=== PATIENT | male | born 1960 | race Caucasian/White ===

== ENCOUNTER → 2021-03-22 19:18 | Outpatient (CLI) | payer BC, SELFPAY | PROVIDERS: Visit Provider Nurse Practitioner Family | DX: U07.1 COVID-19 (principal); R51.9 Headache, unspecified; R05.9 Cough, unspecified; R11.0 Nausea | CPT/HCPCS: C9803; U0003; U0005 ==

== ENCOUNTER → 2021-08-07 14:05 | Outpatient (CLI) | payer BC, SELFPAY ==
--- NOTE | 2021-08-07 14:08 | CT_ITS ---
FINAL REPORT CLINICAL HISTORY: . SMOKER 1.5PPD X40+ YEARS FINDINGS: Low-Dose Chest CT CTDI vol (mGy): 2.90 DLP (mGy-cm): 106.03 Axial images were obtained from the lung apex to the mid abdomen by computed tomography. Low-dose protocol was utilized. FINDINGS: CHEST: There are multiple borderline enlarged bilateral axillary lymph nodes There is no hilar or mediastinal adenopathy. The heart is proper size. There is no pericardial or pleural effusion. Limited images of the upper abdomen demonstrate postoperative changes from cholecystectomy. Lung window images demonstrate mild changes of emphysema and mild pulmonary scarring. There is a calcified granuloma in the left lung base. There is a 3 mm nodule in the right major fissure favoring an intra fissural lymph node. IMPRESSION: Lung RADS category 1. Recommend 12 month follow-up low-dose chest CT. Reviewed, Interpreted and Dictated by Jamie Hernandez III, MD Transcribed by Yuridia Joyce Authenticated by Jamie Hernandez III, MD on 08/07/2021 03:56:[address] [facility]
== END ==
PROVIDERS: PCP Nurse Practitioner Family; Visit Provider Internal Medicine Adolescent Medicine
DX: Z87.891 Personal history of nicotine dependence (principal); Z12.2 Encounter for screening for malignant neoplasm of respiratory organs
CPT/HCPCS: 71271

== ENCOUNTER → 2021-09-01 11:01 | Outpatient (CLI) | payer BC, SELFPAY | PROVIDERS: PCP Internal Medicine Adolescent Medicine; Visit Provider Surgery | DX: Z01.812 Encounter for preprocedural laboratory examination (principal); Z20.822 Contact with and (suspected) exposure to COVID-19; Z12.11 Encounter for screening for malignant neoplasm of colon | CPT/HCPCS: C9803; U0003; U0005 ==

== ENCOUNTER 2021-09-04 08:28 | Day surgery (SDC) | payer BC, SELFPAY ==
[2021-08-30 10:49] VITALS: BMI 24.7
[2021-09-04 08:45] VITALS: BP 131/85; PULSE 91; RESP 18; TEMP 36.9; O2SAT 96
--- NOTE | 2021-09-04 08:53 | PC.NURSE ---
PAtient stated he has dermititis all over body. PCP is aware pt recieved shot (possible steriod) and PO visteril he doesnt take all the time that has helped itching.
[2021-09-04 09:35] VITALS: O2SAT 96
--- NOTE | 2021-09-04 09:47 | HMH.ANESCL ---
[facility] Anesthesia Checklist - Patient Identification Patient Identification: Arm Band - Structural Data Admitted From: Home Planned Operative Procedure/s: colonoscopy Consent for Planned Operative Procedure(s) Verified: Yes Verified Documents: Surgical Consent, History and Physical - NPO Status Verified Time NPO: 00:00 - Additional verifications Anesthesia Reactions: No - Airway Assessment C-Spine Mobility Assessed: Yes (mp2) TMJ Mobility Assessed: Yes Dentition: Good Dentition - Neurological Assessment Level of Consciousness: Awake, Alert - Anesthesia Plan Anesthesia Risk discussed: Yes Anesthesia Plan: Verified ASA Class: III Anesthesia Type: [facility] History I have reviewed the patient's past medical history: Yes Medical History: Reports:: Chronic Obstructive Pulmonary Disease (COPD), Hyperlipidemia Denies:: Cancer, Diabetes Mellitus Type 1, Diabetes Mellitus Type 2, Internal Pacemaker, MRSA, Seizures *Have you ever received a pneumonia vaccine?: No *Have you received a flu vaccine this season?: No Anesthesia experience/problems:: nac Other Surgeries: Yes: Cholecystectomy. No: Pacemaker Amputation: No Fractures: No - *Social History Last grade of school completed: High school graduate Smoking Status: Current every day smoker Tobacco Type: cigarettes # Packs/Day (cigarettes): 2 Alcohol Intake: current Alcohol Intake Frequency:: a few times a month Substance Use Type: denies use *Occupational Status:: employed Housing: house Household Members: significant other, other *Travel in the last 8 weeks: None Family Hx:: Non-contributory
[2021-09-04 10:30] VITALS: BP 114/51; PULSE 85; RESP 18; TEMP 36.6; O2SAT 94
--- NOTE | 2021-09-04 10:31 | P.PCN_ITS ---
- Procedure: Date: 09/04/21 Patient Date of :: 1960 Procedure Performed:: Colonoscopy with polypectomy Indications:: Screening Performing Provider:: Greg Henning MD Referring Provider:: . Sedation:: Monitored anesthesia care Procedure:: After informed consent was obtained the patient was taken to the endoscopy suite. Sedation ensued after the patient was transferred to the left lateral decubitus position. Pulse, blood pressure, and oxygen saturation were monitored throughout the procedure. Digital rectal exam revealed no significant ab normality. The colonoscope was placed in position. The entire colon was evaluated. The colonoscope was carefully removed and the patient was transferred to recovery in stable condition. Please see findings and specimens below for detail. Findings:: Hemorrhoidal tag/cushions Bowel preparation moderate to poor Sigmoid diverticulosis Fairly significant spasticity/lack of relaxation Multiple complex polyps (see specimens) Cluster of hyperplastic-appearing polyps throughout rectum/sigmoid Specimens:: Hepatic flexure polyp (hot snare) Pedunculated transverse colon polyp (hot snare) Large complex lobulated polyp at 45 cm (hot snare) Lobulated polyp at 35 cm (hot snare) Adjacent polyps at 30 cm (hot snare) Large complex pedunculated polyp at 20 cm (hot snare) Polyp at 15 cm (hot snare) Polyp at 10 cm (hot snare) Recommendations:: Timing of repeat colonoscopy is pending pathology but will likely be around 1 year secondary to limited bowel preparation, size/nature/number of polyps, spasticity/lack of relaxation, and need for short-term repeat evaluation of hyperplastic-appearing polyps throughout rectum and sigmoid. Complications:: No immediate Estimated blood obtained (mL): 1
[2021-09-04 10:45] VITALS: BP 122/77; PULSE 81; RESP 18; O2SAT 95
--- NOTE | 2021-09-04 10:48 | SUR.PHASEII ---
PT DID NOT WANT TO STAY ANY LONGER IN [facility] FOR RECOVERY. INSISTED THAT HE WAS FINE AND READY TO GO HOME. PT DID ALLOW ONE MORE BP THAT WAS NORMAL. PT AMBULATED OUT WITH SPOUSE AT SIDE.
== END 2021-09-04 10:48 | disposition home or self-care (01) ==
LOC: OUTP 08:29
PROVIDERS: PCP Internal Medicine Adolescent Medicine; Visit Provider Surgery
PROC: 0DJD8ZZ Inspection of Lower Intestinal Tract, Via Natural or Artificial Opening Endoscopic (ICD-10-PCS; CPT 45385; principal; 2021-09-04 09:30)
DX: Z12.11 Encounter for screening for malignant neoplasm of colon (principal); D12.4 Benign neoplasm of descending colon; D12.5 Benign neoplasm of sigmoid colon; D12.3 Benign neoplasm of transverse colon
CPT/HCPCS: 45385; J2704

== ENCOUNTER 2021-11-15 20:52 | Emergency (ER) | payer SELFPAY ==
[2021-11-15 20:53] VITALS: BP 190/125; PULSE 91; RESP 18; TEMP 37; O2SAT 98; BMI 25.8
--- NOTE | 2021-11-15 21:09 | CT_ITS ---
PROCEDURE INFORMATION: Exam: CTA Neck With Contrast Exam date and time: 11/15/2021 10:01 PM Age: 60 years old Clinical indication: Dizziness and giddiness; Additional info: Dizzy TECHNIQUE: Imaging protocol: Computed tomographic angiography of the neck with contrast. 3D rendering (Not supervised by radiologist): MIP and/or 3D reconstructed images were created by the technologist. Radiation optimization: All CT scans at this facility use at least one of these dose optimization techniques: automated exposure control; mA and/or kV adjustment per patient size (includes targeted exams where dose is matched to clinical indication); or iterative reconstruction. Contrast material: ISOVUE; Contrast volume: 100 ml; Contrast route: INTRAVENOUS (IV); COMPARISON: CT LUNG SCREENING 08/07/2021 2:18 PM FINDINGS: Right common carotid artery: No stenosis. No dissection or occlusion. Right internal carotid artery: There is calcified plaque in the proximal right internal carotid artery with minimal, less than 20%, stenosis. Right external carotid artery: No occlusion or stenosis of the origin. Left common carotid artery: No stenosis. No dissection or occlusion. Left internal carotid artery: No stenosis of the extracranial segment. No dissection or occlusion. Left external carotid artery: No occlusion or stenosis of the origin. Right vertebral artery: No stenosis. No dissection or occlusion. Left vertebral artery: No stenosis. No dissection or occlusion. Soft tissues: Normal. No significant soft tissue swelling. Bones/joints: There is spondylosis and disc space narrowing at C5-C6 and C6-C7. Lungs: There is mild centrilobular and paraseptal emphysema in the upper lobes. IMPRESSION: 1. Less than 20% stenosis at the origin of the right internal carotid artery. No left carotid stenosis. 2. No vertebral artery stenosis. REFERENCES: NASCET CRITERIA. The degree of internal carotid artery stenosis is based on NASCET criteria. Normal is no stenosis. Mild is less than 50% stenosis. Moderate is 50-69% stenosis. Severe is 70% to 99% stenosis. Total occlusion is no detectable patent lumen.
--- NOTE | 2021-11-15 21:09 | CT_ITS ---
PROCEDURE INFORMATION: Exam: CTA Head With Contrast, Arteriography Exam date and time: 11/15/2021 10:01 PM Age: 60 years old Clinical indication: Dizziness and giddiness; Additional info: Dizzy TECHNIQUE: Imaging protocol: Computed tomographic angiography of the head with contrast. Exam focused on the arteries. 3D rendering (Not supervised by radiologist): MIP and/or 3D reconstructed images were created by the technologist. Radiation optimization: All CT scans at this facility use at least one of these dose optimization techniques: automated exposure control; mA and/or kV adjustment per patient size (includes targeted exams where dose is matched to clinical indication); or iterative reconstruction. Contrast material: ISOVUE; Contrast volume: 100 ml; Contrast route: INTRAVENOUS (IV); COMPARISON: No relevant prior studies available. FINDINGS: ANTERIOR CIRCULATION: Right internal carotid artery: Unremarkable. Intracranial segment is patent with no significant stenosis. No aneurysm. Right middle cerebral artery: Unremarkable. No occlusion or significant stenosis. No aneurysm. Right anterior cerebral artery: Unremarkable. No occlusion or significant stenosis. No aneurysm. Left internal carotid artery: Unremarkable. Intracranial segment is patent with no significant stenosis. No aneurysm. Left middle cerebral artery: Unremarkable. No occlusion or significant stenosis. No aneurysm. Left anterior cerebral artery: Unremarkable. No occlusion or significant stenosis. No aneurysm. POSTERIOR CIRCULATION: Right vertebral artery: Unremarkable. No occlusion or significant stenosis. No aneurysm. Left vertebral artery: There is calcified plaque in the intracranial left vertebral artery with mild stenosis. No aneurysm. Basilar artery: Unremarkable. No occlusion or significant stenosis. No aneurysm. Right posterior cerebral artery: Unremarkable. No occlusion or significant stenosis. No aneurysm. Left posterior cerebral artery: Unremarkable. No occlusion or significant stenosis. No aneurysm. Brain: See head CT IMPRESSION: No intracranial large vessel significant stenosis or occlusion.
--- NOTE | 2021-11-15 21:09 | CT_ITS ---
PROCEDURE INFORMATION: Exam: CT Head Without Contrast Exam date and time: 11/15/2021 10:01 PM Age: 60 years old Clinical indication: Dizziness; Additional info: Dizzy TECHNIQUE: Imaging protocol: Computed tomography of the head without contrast. Radiation optimization: All CT scans at this facility use at least one of these dose optimization techniques: automated exposure control; mA and/or kV adjustment per patient size (includes targeted exams where dose is matched to clinical indication); or iterative reconstruction. COMPARISON: No relevant prior studies available. FINDINGS: Brain: Normal. No hemorrhage. Unremarkable white matter. No mass effect. Cerebral ventricles: No ventriculomegaly. Paranasal sinuses: Visualized sinuses are unremarkable. No fluid levels. Mastoid air cells: Visualized mastoid air cells are well aerated. Bones/joints: No acute fracture. Soft tissues: No acute changes IMPRESSION: No acute intracranial abnormality.
--- NOTE | 2021-11-15 21:10 | XR_ITS ---
PROCEDURE INFORMATION: Exam: XR Chest Exam date and time: 11/15/2021 9:40 PM Age: 60 years old Clinical indication: Other: Dizziness; Additional info: Dizzy TECHNIQUE: Imaging protocol: Radiologic exam of the chest. Views: 1 view. COMPARISON: CT LUNG SCREENING 08/07/2021 2:18 PM FINDINGS: Lungs: Bilateral hyperinflation is present. No focal pneumonia or pneumothorax. Pleural spaces: There are no pleural effusions present. Heart/Mediastinum: Unremarkable. No cardiomegaly. Bones/joints: The thoracic spine demonstrates mild degenerative changes at multiple levels. Sclerotic changes present along the proximal humerus. IMPRESSION: 1. Bilateral hyperinflation is present. 2. No focal pneumonia or pneumothorax.
--- NOTE | 2021-11-15 21:10 | HMH.EDGENADL ---
ED Disposition Clinical Impression: Elevated blood pressure reading Disposition: Home, Self-Care Condition on Discharge: Fair Instructions: Essential Hypertension Additional Instructions: You have been evaluated for elevated blood pressure, lightheadedness and dizziness. Please continue to monitor your symptoms closely. Call Dr. Jasmine's office tomorrow for urgent follow-up. Start taking lisinopril hydrochlorothiazide, unless he has a different recommendation. Return to the emergency department at once for any new or worsening symptoms, headache, fever, speech difficulty, vision changes, numbness or weakness or any other concerns. Prescriptions: Lisinopril/Hydrochlorothiazide [Lisinopril-Hctz 10-12.5 mg Tab*] 1 tab PO DAILY #30 tab Transmission Status: Pending to [id number] Referrals: Desmond Jasmine MD [Primary Care Provider] - Time of Disposition: 23:23 - Critical Care Critical Care Time: No Attestation: On 11/15/21, the high probability of a clinically significant, sudden or life threatening deterioration of the following system(s) required my full and direct attention, intervention and personal management. The time I documented below is in addition to time spent performing reported procedures but includes the following listed in this critical care notation. Medical Decision Making - Medical Records Medical records reviewed: Yes: I reviewed the patient's medical records. - Nabil Inquiry Pt receiving controlled substance: No Vital Signs: 11/15/21 20:53 Temperature 98.6 F Temperature Source Oral Pulse Rate [Right] 91 H Respiratory Rate 18 Blood Pressure [Right Arm] 190/125 H Blood Pressure Mean [Right Arm] 146 02 Sat by Pulse Oximetry 98 - Lab Data Lab Results 11/15/21 21:20: WBC 6.9, RBC 4.45 L, Hgb 15.2, Hct 46.8, MCV 105.1 H, MCH 34.2 H, MCHC 32.6, RDW 14.0, Plt Count 345, MPV 7.6, Neut % (Auto) 53.0, Lymph % (Auto) 35.1, [place] % (Auto) 6.3, Eos % (Auto) 3.9, Baso % (Auto) 1.8, Neut # (Auto) 3.6, Lymph # (Auto) 2.4, [place] # (Auto) 0.4, Eos # (Auto) 0.3, Baso # (Auto) 0.1 11/15/21 21:20: PT 10.7, INR 0.94, APTT 27.8 11/15/21 21:20: Sodium 138, Potassium 4.2, Chloride 104, Carbon Dioxide 29, Anion Gap 9.2, BUN 12, Creatinine 0.80, Estimated Creat Clear 104, Estimated GFR 99, Est GFR ( Amer) 119, Glucose 102 H, Calcium 9.2, Total Bilirubin 0.5, AST 27, ALT 18, Alkaline Phosphatase 138 H, Troponin I < 0.01, Total Protein 7.2, Albumin 4.3, Globulin 2.9, Albumin/Globulin Ratio 1.5 11/15/21 21:43: Urine Color Yellow, Urine Appearance Clear, Urine pH 6.0, Ur Specific [place] 1.020, Urine Protein Negative, Urine Glucose (UA) Negative, Urine Ketones Negative, Urine Blood Negative, Urine Nitrate Negative, Urine Bilirubin Negative, Urine Urobilinogen 2.0, Ur Leukocyte Esterase Negative, Urine RBC None, Urine WBC Occasional, Ur Squamous Epith Cells Occasional, Urine Bacteria None, Urine Mucus 1+ Result diagrams: 11/15/21 21:20 11/15/21 21:20 Orders (Tests/Meds): ED MEDICATIONS Discontinued Medications Generic Name Dose Route Start Last Admin Trade Name Freq PRN Reason Stop Dose Admin Iopamidol 100 ml 11/15/21 22:22 11/15/21 22:23 Iopamidol-370 (76%);100ml Bottle IV 11/15/21 22:23 100 ml ONCE ONE Administration Sodium Chloride 50 ml 11/15/21 22:22 11/15/21 22:23 0.9 % Sodium Chloride 50 Ml Vial IV 11/15/21 22:23 50 ml ONCE ONE Administration Sodium Chloride 10 ml 11/15/21 22:22 11/15/21 22:23 Sodium Chloride 0.9% 10ml Syr (Rad Only) IV 11/15/21 22:23 10 ml ONCE ONE Administration ORDERS Category Date Time Status Troponin I Q3H Lab 11/16/21 00:15 Ordered Troponin I Q3H Lab 11/16/21 03:15 Ordered Medical Decision Narrative: In summary this is a previously healthy 60-year-old male presenting to the emergency department with elevated blood pressure, lightheadedness, dizziness. Patient clinically stable on arrival. Vital signs within normal
--- NOTE | 2021-11-15 21:14 | ECG_ITS ---
APPROVED REPORT Exam: Resting ECG HR:83 bpm ECG Measurements Heart Rate 83 AXES NM 127 P 54 QRSd 104 QRS 59 QT 404 T 60 QTc 443 Conclusion SINUS RHYTHM WITH SINUS ARRHYTHMIA MINIMAL ST DEPRESSION [0.025+ mV ST DEPRESSION] BORDERLINE ECG UNCONFIRMED REPORT Electronically signed by : Zen Desai MD 11/16/2021 17:02:08
[2021-11-15 21:49] LABS: Basophils # 0.1 K/mm3 (0-0.2); Basophils % 1.8 % (0.1-2.0); Eosinophils # 0.3 K/mm3 (0.0-0.4); Eosinophils % 3.9 % (0.1-12.0); Hematocrit 46.8 % (42.0-52.0); Hemoglobin 15.2 g/dL (14.1-18.0); Lymphocytes # 2.4 K/mm3 (0.7-4.5); Lymphocytes % 35.1 % (10-50); Mean Corpuscular HGB Conc 32.6 g/dL (31.8-35.4); Mean Corpuscular Hemoglobin 34.2 pg (27.0-31.2); Mean Corpuscular Volume 105.1 fl (80-94); Mean Platelet Volume 7.6 fl (7.4-10.4); Monocytes # 0.4 K/mm3 (0.1-1.0); Monocytes % 6.3 % (1.7-9.3); Neutrophils # 3.6 K/mm3 (1.8-7.8); Platelet Count 345 K/mm3 (142-424); Red Blood Count 4.45 M/mm3 (4.60-6.20); White Blood Count 6.9 K/mm3 (4.8-10.8)
[2021-11-15 21:49] LABS: Microscopic, Urine URINE MICROSCOPIC (MICROSCOPIC)
[2021-11-15 21:51] LABS: Chloride 104 mmol/L (98-107); Sodium 138 mmol/L (136-145)
[2021-11-15 21:52] LABS: Potassium 4.2 mmoL/L (3.5-5.1)
[2021-11-15 21:54] LABS: Alanine Aminotransferase 18 U/L (12-78); Albumin Level 4.3 g/dl (3.5-5.0); Albumin/Globulin Ratio 1.5 (1.1-1.8); Alkaline Phosphatase 138 U/L (38-126); Anion Gap 9.2 mEq/L (5-15); Aspartate Amino Transferase 27 U/L (17-59); Bilirubin,Total 0.5 mg/dl (0.2-1.3); Blood Urea Nitrogen 12 mg/dl (9-20); Carbon Dioxide 29 mmol/L (22.0-30.0); Creatinine Clearance Estimated 104 mL/min (50-200); Estimated Glomerular Filt Rate 99 ml/min (>60); GFR (African American) 119 ML/MIN (>60); Globulin 2.9 g/dL (1.3-3.2); Total Protein,Serum 7.2 g/dl (6.3-8.2)
[2021-11-15 21:55] LABS: Activated Partial Thrombo Time 27.8 seconds (22.8-30.6); Calcium 9.2 mg/dl (8.4-10.2); Glucose 102 mg/dl (74-100); INR 0.94 (0.9-1.1); Prothrombin Time 10.7 seconds (10.1-12.5)
[2021-11-15 22:09] LABS: Troponin I < 0.01 ng/ml (0.00-0.034)
[2021-11-15 22:34] LABS: Appearance,Urine CLEAR (Clear); Bilirubin,Urine Negative (Negative); Blood, Urine Negative (Negative); Color,Urine YELLOW (Yellow); Glucose,Urine (UA) Negative (Negative); Ketones,Urine Negative (Negative); Leukocyte Esterase,Urine Negative (Negative); Nitrate,Urine Negative (Negative); Protein,Urine Negative (Negative)
[2021-11-15 22:55] LABS: Mucus,Urine 1+ /lpf; Squamous Epithelial Cell,Urine Occasional #/hpf (0-5); WBC,Urine Occasional #/hpf (0-3)
[2021-11-15 23:45] VITALS: BP 160/103; PULSE 84; RESP 18; TEMP 37; O2SAT 97
== END 2021-11-15 23:50 | disposition home or self-care (01) ==
PROVIDERS: Emergency Provider Emergency Medicine; PCP Internal Medicine Adolescent Medicine
DX: R42 Dizziness and giddiness (principal); R51.9 Headache, unspecified; I10 Essential (primary) hypertension; E78.5 Hyperlipidemia, unspecified; J44.9 Chronic obstructive pulmonary disease, unspecified; F17.210 Nicotine dependence, cigarettes, uncomplicated; Z79.51 Long term (current) use of inhaled steroids; Z79.52 Long term (current) use of systemic steroids; Z79.899 Other long term (current) drug therapy
CPT/HCPCS: 70450; 70496; 70498; 71045; 80053; 81001; 84484; 85025; 85610; 85730; 93005; 99285; Q9967

== ENCOUNTER 2021-12-03 17:07 | Emergency (ER) | payer BC, SELFPAY ==
--- NOTE | 2021-12-03 18:22 | XR_ITS ---
PROCEDURE INFORMATION: Exam: XR Left Hip Exam date and time: 12/03/2021 6:31 PM Age: 60 years old Clinical indication: Hip pain; Bilateral TECHNIQUE: Imaging protocol: Radiologic exam of the Left hip. Views: 2 or 3 views hip with pelvis when performed. COMPARISON: No relevant prior studies available. FINDINGS: Bones/joints: No fracture. Normal alignment. Hip joint spaces and articular surfaces are grossly well-maintained. No radiographic evidence to suggest transient osteoporosis or avascular necrosis. No blastic or lytic lesions. The visualized SI joints, pubic symphysis, and sacrum/pelvis were unremarkable. Soft tissues: No gross soft tissue abnormalities. Other findings: The anatomic configuration does not specifically predispose to femoro-acetabular impingement. IMPRESSION: No acute findings.
--- NOTE | 2021-12-03 18:22 | XR_ITS ---
PROCEDURE INFORMATION: Exam: XR Right Hip Exam date and time: 12/03/2021 6:29 PM Age: 60 years old Clinical indication: Hip pain; Bilateral TECHNIQUE: Imaging protocol: Radiologic exam of the Right hip. Views: 2 or 3 views hip with pelvis when performed. COMPARISON: No relevant prior studies available. FINDINGS: Tubes, catheters and devices: Intrapelvic surgical clip noted. Bones/joints: No fracture. Normal alignment. Hip joint spaces and articular surfaces are grossly well-maintained. Borderline mild cam morphology of the lateral right femoral head/neck junction with mild hypertrophy of the superolateral right acetabular margin with no significant acetabular over-coverage. The configuration might predispose to chronic femoroacetabular impingement, correlate clinically. No radiographic evidence to suggest transient osteoporosis or avascular necrosis. No blastic or lytic lesions. The visualized SI joints, pubic symphysis, and sacrum/pelvis were unremarkable. Soft tissues: No gross soft tissue abnormalities. IMPRESSION: 1. No acute findings. 2. The right hip morphology may predispose to chronic femoroacetabular impingement, correlate clinically.
[2021-12-03 18:29] VITALS: BP 126/85; PULSE 81; RESP 16; TEMP 37.2; O2SAT 99; BMI 24.6
--- NOTE | 2021-12-03 18:33 | EXP.UTC ---
Discharge Plan Disposition Patient Disposition: Home, Self-Care Condition: Good Prescriptions Prescriptions: New methylprednisolone 4 mg Tablets,Dose Pack 4 mg PO DIRECTED Qty: 21 0RF No Action lisinopril-hydrochlorothiazide 1 EACH tablet 1 tab PO DAILY Qty: 30 0RF albuterol sulfate 8.5 GM HFA aerosol inhaler 18 gm IH NEEDED PRN (Reason: COPD) Referrals Follow up/Referrals: Desmond Jasmine MD [Primary Care Provider] - See instructions Vic Dowell MD [Staff Physician] - See instructions Activity Restrictions/Add. Instructions Additional Instructions/Restrictions: Go home and rest. It would be best if you rested tomorrow too. Follow up with Dr. Dowell (orthopedics). I put in a referral but you need to call his office and schedule an appointment. Don't start the oral steroids (medrol dose pack) until tomorrow, since you had the shots in here today. Follow up with your regular doctor. GO TO THE ER FOR ANY WORSENING SYMPTOMS OR CONCERN, ESPECIALLY BOWEL OR BLADDER ISSUES, SADDLE AREA NUMBNESS, FEVER, ETC Clinical Impressions Clinical Impression: Acute hip pain, bilateral Stand Alone Forms Stand Alone Forms: Work/School Release Instructions Patient Instructions: DI for Hip Pain Discharge ED Provider: Desmond Padgett [facility] General Stated complaint: Bilateral Hip pain Time Seen by Provider: 12/03/21 18:33 History of Present Illness Provider Complaint: He c/o bilateral hip pain that began about 4 weeks ago and has got worse since then. Walking makes his pain worse. He denies any injury. Related Data Home Medications Medication Instructions Recorded Confirmed albuterol sulfate 90 mcg/actuation 18 gm inhalation NEEDED PRN COPD 09/04/21 09/04/21 aerosol inhaler Previous Rx's Medication Instructions Recorded lisinopril 10 1 tab PO DAILY #30 tabs 11/15/21 mg-hydrochlorothiazide 12.5 mg tablet methylprednisolone 4 mg tablets in 4 mg PO DIRECTED #21 tabs 12/03/21 a dose pack Allergies Allergy/AdvReac Type Severity Reaction Status Date / Time No Known Allergies Allergy Verified 12/03/21 18:35 [facility] Social History Smoking Status: Current every day smoker tobacco type: cigarettes packs per day: 2 alcohol intake: current substance use type: denies use current occupational status: employed Travel in the last 8 weeks: None household members: significant other and other housing: house caffeine: Yes ROS Obtained: Yes All systems reviewed & no additional complaints except as documented Constitutional Constitutional: Denies chills and Denies fever(s) Integumentary/Breasts Skin/Breast: Denies redness, Denies rash and Denies wounds Neurologic Neurologic: Denies paresthesias Physical Exam General General appearance: alert and in no apparent distress Head Head exam: atraumatic, normocephalic and normal inspection Eye Eye exam: Present normal appearance, PERRL and EOMI ENT ENT exam: Present normal exam, normal oropharynx, mucous membranes moist, TM's normal bilaterally and normal external ear exam Neck Neck exam: Present normal inspection, full ROM and trachea midline; Absent meningismus or lymphadenopathy Chest Chest inspection: Present normal inspection and symmetric chest wall rise; Absent tenderness Respiratory Respiratory exam: Present normal lung sounds bilaterally; Absent respiratory distress Cardiovascular Cardiovascular exam: Present regular rate and normal rhythm; Absent JVD Abdominal Exam Abdominal exam: Present soft and normal bowel sounds; Absent distention, tenderness or guarding Extremities Exam Extremities exam: Present normal inspection, full ROM and normal capillary refill; Absent calf tenderness Back Exam Back exam: Present normal inspection; Absent tenderness Neurological Exam Neurological exam: Present alert and oriented X3 Psychiatric Psychiatric e
[2021-12-03 19:46] VITALS: BP 126/85; PULSE 81; RESP 16; TEMP 37.2
== END 2021-12-03 19:47 | disposition home or self-care (01) ==
PROVIDERS: Emergency Provider Nurse Practitioner Family; PCP Internal Medicine Adolescent Medicine
DX: M25.551 Pain in right hip (principal); M25.552 Pain in left hip
CPT/HCPCS: 73502; 96372; 99212; G0463

== ENCOUNTER 2021-12-26 14:58 | Outpatient (RCR) | payer BC, SELFPAY ==
--- NOTE | 2021-12-26 16:03 | HMH.PTOPEV ---
PT Outpatient Evaluation Rehab PT Outpatient Evaluation Start: 12/26/21 15:01 Freq: Status: Active Protocol: Document 12/26/21 15:38 JADEN (Rec: 12/26/21 16:02 JADEN [id number]) E-signed By Simon Martinez, PT Outpatient Therapy Subjective History Subjective History Patient is a 61 year old male presenting to outpatient PT with reports of sub-acute LBP, B hip pain and RLE radicular symptoms. Symptoms of insidious onset starting approximately 2 months ago. Most recent imaging indicates possible CRICKET on the R. Radicular symptom relief noted with lumbar extension. Comorbidities include hx of HTN and cholecystectomy. Chief Complaint Pain,Spasms,Gives out/Unstable ,Paresthesia,Weakness Symptom Type Ache,Sharp Symptoms Aggravated By Walking Prior Functional Limitations None Current Functional Limitations Lifting,Housework,Desk Work/ Reading,Sitting,Bending/ Stooping Symptom Description Constant but Variable Level of pain today (0-10) 8 Pain scale - at its best (0-10) 3 Pain scale - at its worst (0-10) 10 Lumbopelvic Eval Posture Thoracic Spine Posture Standing Position Neutral Lumbar Spine Posture Standing Position Decreased Lordosis Palapation tenderness bilateral lumbar spinal tenderness Yes: L2-S1 4/4 paraspinal tenderness Yes: buttock tenderness Yes: R 3/4 Accessory Movement L2 bilateral L3 bilateral L4 bilateral L5 bilateral S1 bilateral Range of Motion Lumbar Spine Active Flexion Range of 56 Motion (degrees) Lumbar Spine Active Extension Range of 9 Motion (degrees) Left Lumbar Spine Lateral Flexion Active 22 Range of Motion (degrees) Right Lumbar Spine Lateral Flexion 24 Active Range of Motion (degrees) Lumbar Spine ROM Limitations Soft Tissue Tightness Manual Muscle Test Right Knee Extension Strength Grade 4- Good- Knee Flexion Strength Grade 4 Good Hip External Rotation Strength Grade 4- Good- Hip Internal Rotation Strength Grade 4- Good- Extensor Hallucis Longus Strength Grade 4- Good- Gastronemius/Soleus Strength Grade 4 Good Altered Sensation LE Dermatome Level L5,S1 Comment shooting pain.
== END 2021-12-26 14:59 | disposition home or self-care (01) ==
LOC: PT 14:58
PROVIDERS: PCP Internal Medicine Adolescent Medicine; Visit Provider Nurse Practitioner Family
DX: R10.31 Right lower quadrant pain (principal); M54.41 Lumbago with sciatica, right side
CPT/HCPCS: 97163

== ENCOUNTER → 2022-06-13 09:15 | Outpatient (CLI) | payer BC, SELFPAY ==
--- NOTE | 2022-06-13 09:21 | US_ITS ---
FINAL REPORT TECHNIQUE: Sonographic images of the thyroid were obtained. CLINICAL HISTORY: HYPOTHYROIDISM FINDINGS: The thyroid is mildly enlarged and heterogeneous. Note is made of hypervascularity. No well-defined nodule is identified IMPRESSION: Mildly enlarged and hypervascular thyroid which can be seen with thyroiditis. No mass is identified. Reviewed, Interpreted and Dictated by Jamie Hernandez III, MD Transcribed by Negrita Crowder Authenticated and [facility] [place]
== END ==
PROVIDERS: PCP Internal Medicine Adolescent Medicine; Visit Provider Nurse Practitioner Family
DX: E03.9 Hypothyroidism, unspecified (principal)
CPT/HCPCS: 76536